=== PATIENT | male | born 2000 | race African-American/Black ===

== ENCOUNTER 2019-02-25 13:10 | Emergency (ER) | payer SELFPAY ==
[~2019-02-25] VITALS: Ht 182.9 cm; Wt 70.5 kg
[2019-02-25 14:46] VITALS: BP 132/79
== END 2019-02-25 15:02 | disposition home or self-care (01) ==
LOC: EMS 13:12
DX: L25.9 Unspecified contact dermatitis, unspecified cause (principal); F12.90 Cannabis use, unspecified, uncomplicated; Z88.0 Allergy status to penicillin; Z88.1 Allergy status to other antibiotic agents